=== PATIENT | male | born 1985 | race Caucasian/White ===

== ENCOUNTER → 2020-04-09 | Outpatient (CLI) | payer OTHER ==
[~2020-04-09] MED LIST: CLEOCIN HCL300 MG PO; IBUPROFEN600 MG PO; KEFLEX CAP 500500 MG PO; NORCO 7.5-3251 EACH PO; POLYTRIM OP SOL10 ML EYEBOTH; PREDNISONE 50 M50 MG PO; VIBRAMYCIN100 MG PO; Viscous lidocaine2% TOP; Voltaren Gel 1 % TOP
== END ==
LOC: SLEEP-COR 11:09
DX: G47.33 Obstructive sleep apnea (adult) (pediatric) (principal); Z20.822 Contact with and (suspected) exposure to COVID-19
CPT/HCPCS: 95810